=== PATIENT | female | born 1995 | race Caucasian/White ===

== ENCOUNTER 2020-11-19 11:12 | Emergency (ER) | payer MEDICAID ==
[~2020-11-19] VITALS: Ht 167.6 cm; Wt 52.0 kg
[2020-11-19] MEDS ORDERED: BACL10TA PO (11:18)
[2020-11-19] MEDS ORDERED: LITH600C5 PO (11:18)
[2020-11-19] MEDS ORDERED: TRAZ-257 PO (11:18)
[2020-11-19] MEDS ORDERED: LEVO25TA9 PO (11:18)
[2020-11-19 13:06] LABS: BASOPHILS % (AUTO) 0.7 % (0.0-2.0); HEMATOCRIT 40.3 % (36-46); HEMOGLOBIN 13.1 g/dL (12.0-16.0); LYMPHOCYTES % (AUTO) 21.6 % (22.0-44.0); MEAN CORPUSCULAR HEMOGLOBIN 30.9 pg (26.0-34.0); MEAN CORPUSCULAR HGB CONC 32.6 G/dL (31.0-37.0); MEAN CORPUSCULAR VOLUME 95 fL (80-100); MONOCYTES # (AUTO) 0.5 K/uL (0.1-1.0); MONOCYTES % (AUTO) 5.6 % (2.0-9.0); NEUTROPHILS # (AUTO) 6.5 K/uL (1.8-7.7); NEUTROPHILS % (AUTO) 71.1 % (40.0-70.0); PLATELET COUNT (AUTO) 332 K/uL (150-450); RED BLOOD CELL COUNT(AUTO) 4.24 MIL/uL (4.00-5.20)
[2020-11-19 13:26] LABS: ANION GAP 9 mmol/L (8-16); CALCIUM, TOTAL 9.2 mg/dL (8.8-10.5); CARBON DIOXIDE 26 mmol/L (22-29); CHLORIDE 106 mmol/L (98-107); GLOMERULAR FILTR. RATE CALC > 60 mL/min (>60); GLUCOSE,RANDOM 99 mg/dL (70-110); POTASSIUM 4.7 mmol/L (3.5-5.1); SODIUM SERUM 141 mmol/L (136-145); UREA NITROGEN, BLOOD 29 mg/dL (7-18)
[2020-11-19 13:38] LABS: ALANINE AMINOTRANSFERASE 25 U/L (12-78); ALBUMIN 4.3 g/dL (3.4-5.0); ALKALINE PHOSPHATASE 72 U/L (46-116); ASPARTATE AMINOTRANSFERASE 16 U/L (15-37); BILIRUBIN,TOTAL 0.2 mg/dL (0.1-1.0); HCG,QUANTITATIVE < 1 mIU/mL (0-6); TOTAL PROTEIN, SERUM 7.3 g/dL (6.4-8.2)
[2020-11-19 13:57] VITALS: BP 112/79
== END 2020-11-19 14:12 | disposition left against medical advice (07) ==
LOC: EMS 11:18
DX: S09.90XA Unspecified injury of head, initial encounter (principal); F31.9 Bipolar disorder, unspecified; Z88.8 Allergy status to other drugs, medicaments and biological substances; X58.XXXA Exposure to other specified factors, initial encounter; Y93.89 Activity, other specified; Y92.89 Other specified places as the place of occurrence of the external cause; Y99.8 Other external cause status
CPT/HCPCS: 80053; 84702; 85025; 93005; 99284